=== PATIENT | male | born 1975 | race Caucasian/White ===

== ENCOUNTER 2016-12-01 17:51 | Emergency (ER) | payer OTHER ==
[~2016-12-01] VITALS: Ht 177.8 cm; Wt 92.0 kg
[2016-12-01 17:54] VITALS: Ht 177.8 cm; Wt 92.0 kg
[2016-12-01] MEDS ORDERED: HYDROCODONE/APAP (5/325) TAB PO ONE (18:30)
--- NOTE | 2016-12-01 18:55 | RADRPT ---
PROCEDURE: Left elbow series CLINICAL INDICATION: Pain status post trauma TECHNIQUE: AP lateral and oblique views COMPARISON: None available FINDINGS: No acute fractures or dislocations are present. Normal mineralization and joint spaces are noted. The soft tissues are intact without radiodense foreign bodies. IMPRESSION: 1. No acute fractures or dislocations. RPTAT: HDC .Tere Garcia MD, Date Time Electronically viewed and signed by .Tere Garcia MD, on 12/01/2016 18:55 .C/
[2016-12-01] MEDS ORDERED: LIDOCAINE 2% (MDV) 20 ML INJ INJ ONE (19:00)
--- NOTE | 2016-12-01 19:06 | ERA ---
ER Documentation Chief Complaint Date/Time DATE: 12/01/16 TIME: 19:00 Chief Complaint LT ELBOW LAC , HEADACHE S/P SLIP AND FALL IN SHOWER , NO LOC HPI This is a 41-year-old male presenting one hour status post mechanical fall in shower. Patient is complaining of lack on left elbow were majority of impact was sustained. Patient also states that he had minor impact to the head. Patient currently does not complain of any pain in the head. Denies altered mental status, change in behavior per , loss of consciousness, vomiting, or severe headache. Denies any numbness, tingling, swelling, or severe pain distal to the injury. Patient said the rest of the impact was to his bottom which has no pain at this time. Denies any distracting injuries. Tetanus status is up-to-date. ROS All systems reviewed and are negative except as per history of present illness. Medications Home Meds Active Scripts Hydrocodone/Acetaminophen ([place] 5-325 Tablet) 1 Each Tablet, 1 TAB PO Q6H Y for PAIN, #7 TAB Prov:AVELINO HAND PA-C 12/01/16 Allergies Allergies: Coded Allergies: No Known Allergy (Unverified , 12/01/16) PMhx/Soc Medical and Surgical Hx: pt denies Medical Hx, pt denies Surgical Hx Hx Alcohol Use: No Hx Substance Use: No Hx Tobacco Use: No Physical Exam Vitals Vital Signs Date Time Temp Pulse Resp B/P Pulse Ox O2 Delivery O2 Flow Rate FiO2 12/01/16 17:54 97.9 89 18 120/92 96 Physical Exam Const: [] Head: Atraumatic Eyes: Normal Conjunctiva ENT: Normal External Ears, Nose and Mouth. Neck: Full range of motion..~ No meningismus. Resp: Clear to auscultation bilaterally Cardio: Regular rate and rhythm, no murmurs Abd: Soft, non tender, non distended. Normal bowel sounds Skin: No petechiae or rashes Back: No midline or flank tenderness Ext: No cyanosis, or edema Neur: Awake and alert Psych: Normal Mood and Affect Results 24 hrs Current Medications Medications (Trade) Dose Ordered Sig/Tommy Route PRN Reason Start Time Stop Time Status Last Admin Dose Admin Acetaminophen/ Hydrocodone Bitart ([place] (5/325)) 1 tab ONCE ONCE PO 12/01/16 18:30 12/01/16 18:31 DC 12/01/16 18:37 Lidocaine (Xylocaine 2% (Mdv) 20 ml) 20 ml ONCE ONCE INJ 12/01/16 19:00 12/01/16 19:01 DC Procedures/MDM Patient presents with a 3 cm downsloping clean laceration on the left elbow superior to the O canal process. Tetanus status is up-to-date. ED treatment consisted of 5/325 [place] p.o with relief of discomfort. X-ray was taken to rule out fracture due to history of trauma. X-ray was read by the radiologist given the following impression. 1. No acute fractures or dislocations. The laceration was irrigated with normal saline and cleaned by the nursing staff. Iodine was used to sterilize the affected area. 3 mL of epi without lidocaine was used with adequate anesthesia to the area using local block. There were no foreign bodies found with exploration. The laceration was then repaired with 1 vertical mattress with 3-0 Prolene. The wound was well approximated and there was adequate eversion. There were no complications during the proceeder. Neurovascular status was reevaluated post procedure, and remained unchanged. They were then educated on wound care and warning signs of complications, and instructed to follow up in 2 days for a wound check. They verbally stated that they understand the plan of management. I have a very low suspicion at this time for infection, compartment syndrome, fracture or neurovascular compromise. The area was then washed and bacitracin applied by the nursing staff. Sterile gauze was used to cover the area. The patient is otherwise healthy and did not sustain a dirty or deep wound; thus , at this time antibiotics are not necessary. The patient will however be discharged with 7 [place] for discomfort. Patient will be discharged home with instructions and return precautions for infection. Departure Diagnosis: Primary Impression: Laceration Condition: Stable Additional Instructions: Follow up with your PCP within the next 1-3 days for a more thorough evaluation and a possible referral to a specialist. Return the the emergency department immediately if symptoms worsen or change. If you have any questions regarding medications, ask your pharmacist or us before you leave. If any adverse reactions occur while taking your medications, discontinue the treatment and return to the emergency department immediately. Take your medications as directed, and complete the entire course of treatment. AVELINO HAND PA-C Dec 01, 2016 19:05
[2016-12-01] MEDS ORDERED: HYDR-906 PO (19:32)
== END 2016-12-01 19:47 | disposition home or self-care (01) ==
LOC: FTE 17:51
DX: S51.012A Laceration without foreign body of left elbow, initial encounter (principal); W18.2XXA Fall in (into) shower or empty bathtub, initial encounter; Y92.9 Unspecified place or not applicable
CPT/HCPCS: 12002; 73080; Z7502; Z7610

== ENCOUNTER 2016-12-10 19:07 | Emergency (ER) | payer OTHER ==
[~2016-12-10] VITALS: Ht 170.2 cm; Wt 92.0 kg
[~2016-12-10 19:07] MED LIST: HYDR-906 PO
[2016-12-10 19:12] VITALS: Ht 170.2 cm; Wt 92.0 kg
--- NOTE | 2016-12-10 21:41 | ERD ---
ER Documentation Chief Complaint Date/Time DATE: 12/10/16 TIME: 21:39 Chief Complaint Request removal of stitches on left elbow. HPI This is a 41-year-old male presenting to the emergency department requesting to remove the sutures on a left elbow from a repaired laceration that it was done on December 01. Patient was in the shower and he fell down. Patient denies any fevers, increased pain, any complications. He denies taking any medications for this ROS All systems reviewed and are negative except as per history of present illness. Medications Home Meds Active Scripts Hydrocodone/Acetaminophen ([place] 5-325 Tablet) 1 Each Tablet, 1 TAB PO Q6H Y for PAIN, #7 TAB Prov:AVELINO HAND PA-C 12/01/16 Allergies Allergies: Coded Allergies: No Known Allergy (Unverified , 12/01/16) PMhx/Soc Medical and Surgical Hx: pt denies Medical Hx, pt denies Surgical Hx Hx Alcohol Use: No Hx Substance Use: No Hx Tobacco Use: No Smoking Status: Never smoker Physical Exam Vitals Vital Signs Date Time Temp Pulse Resp B/P Pulse Ox O2 Delivery O2 Flow Rate FiO2 12/10/16 19:12 98.5 82 18 122/71 99 Physical Exam General: WD/WN, in no apparent distress, non-toxic appearing HENT: NC/AT Eyes: Conjunctiva normal Neck: Supple Pulm: Clear to auscultation, normal labored breathing; no wheezing/rales/ rhonchi heard CV: Good capillary refill GI: Non-distended, no guarding Back: No masses Ext: No clubbing, cyanosis, or edema Neuro: Moves on all fours Skin: Repaired laceration on the left elbow with one suture intact t Psych: Normal mood Procedures/MDM This is a 41-year-old male presenting to the emergency department for suture removal of a repaired laceration that was done on December 01 from a ground-level fall. There was one suture intact, there was no evidence of dehiscence, cellulitis. It appears to heal well. I removed one suture and applied dressing. Discussed with patient to follow-up with primary care physician or return to the ER for any worsening symptoms. He understands and agrees with plan Departure Diagnosis: Primary Impression: Encounter for removal of sutures Condition: Stable Patient Instructions: Suture Removal, No Complication Referrals: NO PRIMARY,CARE PHYSICIAN Additional Instructions: Return to this facility if you are not improving as expected. MADDI ANGUIANO PA-C Dec 10, 2016 21:41
== END 2016-12-10 20:37 | disposition home or self-care (01) ==
LOC: FTE 19:07
DX: Z48.02 Encounter for removal of sutures (principal)
CPT/HCPCS: 99281